=== PATIENT | female | born 1955 | race Caucasian/White ===

== ENCOUNTER 2018-02-03 12:18 | Observation (INO) | payer BC, OTHER ==
[2018-02-03] VITALS (9 sets, daily range): BP systolic 133–164; BP diastolic 69–90; PULSE 96–105; RESP 16–24; TEMP 96.8–99.2; O2SAT 92–98
[~2018-02-03] VITALS: Ht 160 cm; Wt 109.3 kg
[~2018-02-03 12:18] MED LIST: ASPI81CH3 PO; CALC600T34 PO; FERR324T4 PO; FOLI1TAB PO; IBUP800T23 PO; LEVO25TA36 PO; METH750T2 PO; OMEP20CA5 PO; PRED5 PO; TAB-TAB PO; TOFA5TAB PO; VITA100017 PO
--- NOTE | 2018-02-03 14:40 | PD ---
HPI Chief Complaint: Respiratory Symptoms Time Seen by Provider: 14:25 Travel History International Travel<30 days: No Contact w/Intl Traveler<30days: No Traveled to known affect area: No History of Present Illness HPI The patient is a 63-year-old female who presents to the emergency department for shortness of breath and wheezing. The patient states her symptoms started several weeks ago with flulike symptoms. The patient was treated with Tamiflu, however, her symptoms persisted. The patient was then placed on amoxicillin for postnasal drip. The patient then developed increasing shortness of breath and cough, had an outpatient chest x-ray last Wednesday which apparently revealed pneumonia. The patient was placed on Levaquin , however, has progressing symptoms. The patient does have a history of rheumatoid arthritis is currently taking methotrexate, prednisone 5 mg daily, and Xeljanz. The patient does note a mostly dry nonproductive cough, subjective fevers, but no chills or sweats. The patient does not have any inhaler or nebulizer at home. She does have a history of pneumonia and bronchitis, quit smoking in 1989. She denies any known history of congestive heart failure, COPD, pulmonary embolism, or DVT. The patient's primary physician is Dr. Calvin. Symptoms are moderate. PFSH Past Medical History Hx Anticoagulant Therapy: Yes (asa 81mg) Anemia: Yes Arthritis: Yes (RHEUMATOID) Cancer: No Cardiovascular Problems: Yes (hx of htn but not at this time) Diabetes: Yes (type 2) Diminished Hearing: No GERD: Yes Glaucoma: No Hepatitis: No Hiatal Hernia: No Hypertension: Yes Thyroid Disease: Yes ?: Not Menopausal: Yes Past Surgical History Abdominal Surgery: No Section: Yes Ear Surgery: No Endocrine Surgery: No Eye Surgery: No Genitourinary Surgery: No Gynecologic Surgery: Yes (C-SEC) Oral Surgery: No Pacemaker: No Thoracic Surgery: No Other Surgery: Yes Social History Alcohol Use: No Tobacco Use: No Substance Use: No Allergies-Medications (Allergen,Severity, Reaction): Coded Allergies: shellfish derived (Unverified Allergy, Intermediate, Hives, 02/03/18) alendronate sodium (Unverified Allergy, Mild, 02/03/18) HURTS ALL OVER Reported Meds & Prescriptions Reported Meds & Active Scripts Active Reported Levofloxacin 750 Mg Tablet Unknown Dose PO DAILY Omeprazole 40 Mg Cap 40 Mg PO DAILY Prednisone 5 Mg Tab 5 Mg PO DAILY Levothyroxine (Levothyroxine Sodium) 25 Mcg Tab 25 Mcg PO DAILY Folic Acid 0.8 Mg Tab 1 Mcg PO DIRECTED Aspirin EC (Aspirin) 81 Mg Tabdr 81 Mg PO DAILY Januvia (Sitagliptin Phosphate) 100 Mg Tab 100 Mg PO DAILY Gabapentin 300 Mg Cap 600 Mg PO HS Glipizide 5 Mg Tab 5 Mg PO DAILY Take 30 minutes before a meal Sertraline (Sertraline HCl) 50 Mg Tab 50 Mg PO DAILY Xeljanz (Tofacitinib) 5 Mg Tab 5 Mg PO BID Rasuvo (Methotrexate (Antirheumatic)) 20 Mg/0.4 Ml Inj 50 Mg IM WEEKLY Review of Systems Except as stated in HPI: all other systems reviewed are Neg General / Constitutional: Positive: Fever HENT: Positive: Congestion, No: Lightheadedness Cardiovascular: No: Chest Pain or Discomfort Respiratory: Positive: Cough, Shortness of Breath, Wheezing Gastrointestinal: No: Nausea, Vomiting, Abdominal Pain Musculoskeletal: Positive: Weakness, No: Edema Physical Exam Narrative GENERAL: Awake, alert, pleasant 63-year-old female who appears her stated age and is in no acute respiratory distress. SKIN: Focused skin assessment warm/dry. HEAD: Atraumatic. Normocephalic. EYES: Pupils equal and round. No scleral icterus. No injection or drainage. ENT: No nasal bleeding or discharge. Mucous membranes pink and moist. NECK: Trachea midline. No JVD. CARDIOVASCULAR: Regular, tachycardic with a heart rate of 110. RESPIRATORY: Mild tachypnea with a respiratory rate of 24. Diffuse wheezing and some rhonchi noted in the right base. GASTROINTESTINAL: Abdomen soft, non-tender, nondistended. No rebound tenderness. MUSCULOSKELETAL: No obvious deformities. No clubbing. No cyanosis. No edema. Superficial varicosities noted. Negative Homans sign. No tenderness over the calf. NEUROLOGICAL: Awake and alert. No obvious cranial nerve deficits. Motor grossly within normal limits. Normal speech. PSYCHIATRIC: Appropriate mood and affect; insight and judgment normal. Data Data Last Documented VS Vital Signs Date Time Temp Pulse Resp B/P (MAP) Pulse Ox O2 Delivery O2 Flow Rate FiO2 02/03/18 15:38 96 Nasal Cannula 2.00 02/03/18 15:02 96 18 02/03/18 12:22 99.2 164/81 (108) Orders Orders Complete Blood Count With Diff (02/03/18 14:34) Comprehensive Metabolic Panel (02/03/18 14:34) B-Type Natriuretic Peptide (02/03/18 14:34) Magnesium (Mg) (02/03/18 14:34) Influenzae A/B Antigen (02/03/18 14:34) Blood Culture (02/03/18 14:34) Iv Access Insert/Monitor (02/03/18 14:34) Electrocardiogram (02/03/18 14:34) Ecg Monitoring (02/03/18 14:34) Oximetry (02/03/18 14:34) Oxygen Administration (02/03/18 14:34) Chest, Single Ap (02/03/18 14:34) Sodium Chloride 0.9% Flush (Ns Flush) (02/03/18 14:45) Methylprednisolone So Succ Inj (Solumedr (02/03/18 14:45) Albuterol-Ipratropium Neb (Duoneb Neb) (02/03/18 14:45) Lactic Acid (02/03/18 14:34) Sodium Chlorid 0.9% 500 Ml Inj (Ns 500 M (02/03/18 14:45) Admit Order (Ed Use Only) (02/03/18 16:04) Labs Laboratory Tests Test 02/03/18 14:50 White Blood Count 15.4 TH/MM3 Red Blood Count 4.73 MIL/MM3 Hemoglobin 12.9 GM/DL Hematocrit 38.8 % Mean Corpuscular Volume 82.0 FL Mean Corpuscular Hemoglobin 27.2 PG Mean Corpuscular Hemoglobin Concent 33.2 % Red Cell Distribution Width 18.1 % Platelet Count 317 TH/MM3 Mean Platelet Volume 8.5 FL Neutrophils (%) (Auto) 83.0 % Lymphocytes (%) (Auto) 6.5 % Monocytes (%) (Auto) 7.1 % Eosinophils (%) (Auto) 1.3 % Basophils (%) (Auto) 2.1 % Neutrophils # (Auto) 12.8 TH/MM3 Lymphocytes # (Auto) 1.0 TH/MM3 Monocytes # (Auto) 1.1 TH/MM3 Eosinophils # (Auto) 0.2 TH/MM3 Basophils # (Auto) 0.3 TH/MM3 CBC Comment DIFF FINAL Differential Comment Blood Urea Nitrogen 13 MG/DL Creatinine 0.95 MG/DL Random Glucose 150 MG/DL Total Protein 8.4 GM/DL Albumin 3.1 GM/DL Calcium Level 8.8 MG/DL Magnesium Level 1.6 MG/DL Alkaline Phosphatase 109 U/L Aspartate Amino Transf (AST/SGOT) 21 U/L Alanine Aminotransferase (ALT/SGPT) 26 U/L Total Bilirubin 0.6 MG/DL Sodium Level 137 MEQ/L Potassium Level 3.9 MEQ/L Chloride Level 100 MEQ/L Carbon Dioxide Level 30.6 MEQ/L Anion Gap 6 MEQ/L Estimat Glomerular Filtration Rate 59 ML/MIN Lactic Acid Level 2.0 mmol/L B-Type Natriuretic Peptide LESS THAN 2 PG/ML MDM Medical Decision Making Medical Screen Exam Complete: Yes Emergency Medical Condition: Yes Medical Record Reviewed: Yes Interpretation(s) Last Impressions Chest X-Ray 02/03/18 1434 Signed Impressions: Service Date/Time: January 14:37 - CONCLUSION: Focal patchiness within the right upper lung field and left lung base consistent with possible infiltrates. Clinical correlation is recommended. Parish Domínguez MD EKG reveals normal sinus rhythm with a rate 85. Low QRS voltage precordial leads. Q waves in lead II, III, and aVF. Laboratory Tests Test 02/03/18 14:50 White Blood Count 15.4 TH/MM3 Red Blood Count 4.73 MIL/MM3 Hemoglobin 12.9 GM/DL Hematocrit 38.8 % Mean Corpuscular Volume 82.0 FL Mean Corpuscular Hemoglobin 27.2 PG Mean Corpuscular Hemoglobin Concent 33.2 % Red Cell Distribution Width 18.1 % Platelet Count 317 TH/MM3 Mean Platelet Volume 8.5 FL Neutrophils (%) (Auto) 83.0 % Lymphocytes (%) (Auto) 6.5 % Monocytes (%) (Auto) 7.1 % Eosinophils (%) (Auto) 1.3 % Basophils (%) (Auto) 2.1 % Neutrophils # (Auto) 12.8 TH/MM3 Lymphocytes # (Auto) 1.0 TH/MM3 Monocytes # (Auto) 1.1 TH/MM3 Eosinophils # (Auto) 0.2 TH/MM3 Basophils # (Auto) 0.3 TH/MM3 CBC Comment DIFF FINAL Differential Comment Blood Urea Nitrogen 13 MG/DL Creatinine 0.95 MG/DL Random Glucose 150 MG/DL Total Protein 8.4 GM/DL Albumin 3.1 GM/DL Calcium Level 8.8 MG/DL Magnesium Level 1.6 MG/DL Alkaline Phosphatase 109 U/L Aspartate Amino Transf (AST/SGOT) 21 U/L Alanine Aminotransferase (ALT/SGPT) 26 U/L Total Bilirubin 0.6 MG/DL Sodium Level 137 MEQ/L Potassium Level 3.9 MEQ/L Chloride Level 100 MEQ/L Carbon Dioxide Level 30.6 MEQ/L Anion Gap 6 MEQ/L Estimat Glomerular Filtration Rate 59 ML/MIN Lactic Acid Level 2.0 mmol/L B-Type Natriuretic Peptide LESS THAN 2 PG/ML Differential Diagnosis Differential diagnosis includes pneumonia, bronchitis, failed outpatient therapy , pleural effusion, influenza, congestive heart failure, pulmonary edema, pulmonary embolism, cardiomyopathy. Narrative Course IV was established, labs are drawn and sent, and the patient was placed on cardiac telemetry monitoring and continuous pulse oximetry monitoring. EKG was ordered and interpreted. Chest x-ray was obtained. The patient received Solu- Medrol 125 mg intravenously and duo nebs 3. Chest x-ray reveals focal patchiness within the right upper lung field and left lung base consistent with possible infiltrates. White count is not elevated at 15.4, heart rate is elevated, sirs criteria. Lactic acid is 2.0. Pneumonia is bilateral on x-ray. The patient was reevaluated after duo nebs, continues to have wheezing. The patient is immunocompromised with her rheumatoid medications, has decreased T- cell response, continued wheezing after treatment, therefore, will be admitted. The patient received Rocephin and Zithromax. Sepsis Criteria SIRS Criteria (2 or more): Heart rate over 90, WBC > 32286, < 4000 or > 10% bands Physician Communication Physician Communication [facility]. I discussed the patient with Dr. Saldivar who agrees with admission. Diagnosis Primary Impression: Pneumonia Qualified Codes: J18.9 - Pneumonia, unspecified organism Additional Impression: Sepsis Qualified Codes: A41.9 - Sepsis, unspecified organism Admitting Information Admitting Physician Requests: Admit Condition: Stable Bassam Sanches MD Feb 03, 2018 14:40
[2018-02-03] MEDS ORDERED: SODIUM CHLORIDE 0.9% FLUSH 10 ML FLUSH IVF PRN (14:45)
[2018-02-03] MEDS ORDERED: methylPREDNISolone SOD SUCC 125 MG/2 ML VIAL IV PUSH ONE (14:45)
[2018-02-03] MEDS ORDERED: SODIUM CHLORID 0.9% 500 ML INJ 500 ML IV ONE (14:45)
--- NOTE | 2018-02-03 14:49 | RADRPT ---
EXAM DATE/TIME: 02/03/2018 14:37 [facility] COMPARISON: No previous studies available for comparison. INDICATIONS : Short of breath. MEDICAL HISTORY : None. SURGICAL HISTORY : None. ENCOUNTER: Initial ACUITY: 1 week PAIN SCORE: 2/10 LOCATION: Bilateral chest FINDINGS: Focal patchiness is noted within the right upper lung field and left lung base consistent with possib le infiltrates. Clinical correlation is recommended. The heart is normal. The pulmonary vascular veronica castillo is normal. CONCLUSION: Focal patchiness within the right upper lung field and left lung base consistent with possible infilt rates. Clinical correlation is recommended. Parish Domínguez MD on February 03, 2018 at 14:46 Board Certified Radiologist. This report was verified electronically.
[2018-02-03] MEDS ORDERED: METH0.35 IM (14:54)
[2018-02-03] MEDS ORDERED: SERT-132 PO (14:54)
[2018-02-03] MEDS ORDERED: GLIP5TAB8 PO (14:54)
[2018-02-03] MEDS ORDERED: TOFA5TAB PO (14:54)
[2018-02-03] MEDS ORDERED: LEVO750T3 PO (15:06)
[2018-02-03] MEDS ORDERED: LEVO25TA4 PO (15:06)
[2018-02-03] MEDS ORDERED: SITA1TAB2 PO (15:06)
[2018-02-03] MEDS ORDERED: FOLI800T PO (15:06)
[2018-02-03] MEDS ORDERED: PRED5TAB PO (15:06)
[2018-02-03] MEDS ORDERED: OMEP20TA93 PO (15:06)
[2018-02-03] MEDS ORDERED: ASPI81TA23 PO (15:06)
[2018-02-03] MEDS ORDERED: OMEP40CA2 PO (15:06)
[2018-02-03] MEDS ORDERED: GABA300C5 PO (15:06)
[2018-02-03 15:16] LABS: AUTOMATED NEUTROPHIL # 12.8 TH/MM3 (1.8-7.7); BASOPHIL # 0.3 TH/MM3 (0-0.2); BASOPHIL % 2.1 % (0.0-2.0); EOSINOPHIL # 0.2 TH/MM3 (0-0.4); EOSINOPHIL % 1.3 % (0.0-4.0); HEMATOCRIT 38.8 % (35.0-46.0); HEMOGLOBIN 12.9 GM/DL (11.6-15.3); LYMPH % 6.5 % (9.0-44.0); MEAN CORPUSCULAR HEMOGLOBIN 27.2 PG (27.0-34.0); MEAN CORPUSCULAR HGB CONC 33.2 % (32.0-36.0); MEAN PLATELET VOLUME 8.5 FL (7.0-11.0); MONO % 7.1 % (0.0-8.0); MONOCYTE # 1.1 TH/MM3 (0-0.9); PLATELET COUNT 317 TH/MM3 (150-450); RED BLOOD COUNT 4.73 MIL/MM3 (4.00-5.30); RED CELL DISTRIBUTION WIDTH 18.1 % (11.6-17.2); WHITE BLOOD COUNT 15.4 TH/MM3 (4.0-11.0)
[2018-02-03] MEDS: RESP: ALBUTEROL 2.5 MG/IPRATROPIUM 0.5 MG NEB (SCH) INH (15:34)
[2018-02-03 15:36] LABS: CHLORIDE 100 MEQ/L (98-107); SODIUM (NA) 137 MEQ/L (136-145)
[2018-02-03 15:40] LABS: ALBUMIN 3.1 GM/DL (3.4-5.0); BICARBONATE 30.6 MEQ/L (21.0-32.0); BLOOD UREA NITROGEN 13 MG/DL (7-18); CALCIUM 8.8 MG/DL (8.5-10.1); GLUCOSE,RANDOM 150 MG/DL (74-106); MAGNESIUM 1.6 MG/DL (1.5-2.5)
[2018-02-03 15:43] LABS: ALT (GPT) 26 U/L (10-53); AST (GOT) 21 U/L (15-37); CREATININE 0.95 MG/DL (0.50-1.00); GLOMERULAR FILTRATION RATE 59 ML/MIN (>89)
[2018-02-03 15:45] LABS: TOTAL BILIRUBIN ADULT 0.6 MG/DL (0.2-1.0); TOTAL PROTEIN 8.4 GM/DL (6.4-8.2)
[2018-02-03 15:46] LABS: ALKALINE PHOSPHATASE 109 U/L (45-117)
[2018-02-03] MEDS ORDERED: cefTRIAXone INJ 1,000 MG in SODIUM CHLORIDE 0.9% INJ 100 ML IV ONE (16:15)
[2018-02-03] MEDS ORDERED: ONDANSETRON HCL 4 MG/2 ML VIAL IVP PRN (16:15)
[2018-02-03] MEDS ORDERED: AZITHROMYCIN INJ 500 MG in SODIUM CHLOR 0.9% 250 ML INJ 250 ML IV ONE (16:15)
[2018-02-03] MEDS ORDERED: NALOXONE HCL 0.4 MG/ML AMP IV PUSH PRN (16:15)
[2018-02-03] MEDS ORDERED: RESP: ALBUTEROL 2.5 MG/3 ML NEB (PRN) NEB (16:15)
[2018-02-03] MEDS ORDERED: MAGNESIUM HYDROXIDE SUSP 30 ML CUP PO PRN (16:15)
[2018-02-03] MEDS: ENOXAPARIN SODIUM 40 MG/0.4 ML SYRINGE SQ SCH (16:25)
[2018-02-03] MEDS: SODIUM CHLOR 0.9% 1000 ML INJ 1,000 ML IV SCH (16:25)
--- NOTE | 2018-02-03 16:40 | HHI.HP ---
[facility] Service [facility] Primary Care Physician Clinton Calvin M.D. Admission Diagnosis Bilateral pneumonia, immunocompromise, sepsis Diagnoses: (1) Sepsis Diagnosis: Principal (2) Pneumonia Diagnosis: Principal Chief Complaint: Shortness of breath and wheezing Travel History International Travel<30 Days: No Contact w/Intl Traveler <30 Da: No Traveled to Known Affected Are: No History of Present Illness 63 -year-old female with known history of hypertension, rheumatoid arthritis, diabetes, gastroesophageal reflux, history tobacco use who presented to hospital because of difficulty breathing, shortness of breath, wheezing, dyspnea on exertion. Patient states that her symptoms started at the beginning of this month where she started developing symptoms of upper respiratory infection with sinus congestion, sinus headache, cough, congestion. She did go to her primary medical doctor office Dr. Calvin, who had chest x-ray performed last Wednesday and it was found that time the patient had pneumonia. Patient was then prescribed Levaquin on Wednesday. The patient is only taken 3 doses of antibiotics and because she did not improve she did not take any antibiotics today. She came to emergency department for evaluation. Patient was found to have significant wheezing, patient was given nebulizer treatments and the patient states that her respiratory status has improved since nebulizer treatment. Patient still having a lot of chest tightness and wheeze despite the use of nebulizer. Patient indicates that she has had a cough with minimal phlegm production. 2 weeks ago she did have yellow phlegm, however now she has minimal phlegm production. Her symptoms started worsening when the pollen count has been elevated. Patient has never been diagnosed with any restrictive airway disease or obstructive airway disease despite her [id number] history of smoking. The patient has had increased fatigue with weakness. She did have chills couple weeks ago, however she has not had any fever or chills since then. Patient still does experience some sinus headaches. She denies any nausea, vomiting. She states that she has had loose stools but that has been going on for over the last month. It was not precipitated by any sick exposures or antibiotic use. Review of Systems Respiratory: COMPLAINS OF: Cough, Wheezing, Shortness of breath Except as stated in HPI: all other systems reviewed are Neg Past Family Social History Past Medical History Hypertension Rheumatoid arthritis Gastroesophageal reflux Hypothyroidism Diabetes Past Surgical History Reported Medications Reported Meds & Active Scripts Active Reported Levofloxacin 750 Mg Tablet Unknown Dose PO DAILY Omeprazole 40 Mg Cap 40 Mg PO DAILY Prednisone 5 Mg Tab 5 Mg PO DAILY Levothyroxine (Levothyroxine Sodium) 25 Mcg Tab 25 Mcg PO DAILY Folic Acid 0.8 Mg Tab 1 Mcg PO DIRECTED Aspirin EC (Aspirin) 81 Mg Tabdr 81 Mg PO DAILY Januvia (Sitagliptin Phosphate) 100 Mg Tab 100 Mg PO DAILY Gabapentin 300 Mg Cap 600 Mg PO HS Glipizide 5 Mg Tab 5 Mg PO DAILY Take 30 minutes before a meal Sertraline (Sertraline HCl) 50 Mg Tab 50 Mg PO DAILY Xeljanz (Tofacitinib) 5 Mg Tab 5 Mg PO BID Rasuvo (Methotrexate (Antirheumatic)) 20 Mg/0.4 Ml Inj 50 Mg IM WEEKLY Allergies: Coded Allergies: shellfish derived (Unverified Allergy, Intermediate, Hives, 02/03/18) alendronate sodium (Unverified Allergy, Mild, 02/03/18) HURTS ALL OVER Family History Reviewed is significant for mother at age 78 from ovarian cancer. Father at age 82 with history of hypertension and stroke. Social History Patient quit smoking in 1990 prior to that she smoked for 15 years at 1-1/2 pack a cigarettes a day. Denies any alcohol or illicit drug Physical Exam Vital Signs Vital Signs Date Time Temp Pulse Resp B/P (MAP) Pulse Ox O2 Delivery O2 Flow Rate FiO2 02/03/18 16:20 98.4 102 16 154/69 (97) 96 Nasal Cannula 2.00 02/03/18 15:38 96 Nasal Cannula 2.00 02/03/18 15:02 96 18 98 Nasal Cannula 2.00 02/03/18 14:37 96 Room Air 02/03/18 14:37 96 Room Air 02/03/18 14:34 102 96 Room Air 02/03/18 12:22 99.2 96 16 164/81 (108) 92 Physical Exam GENERAL: Well-developed, well-nourished, in no acute distress. alert and orientated HEENT: Head is normocephalic without any lesions or masses noted. Facial features are symmetric. Eyes: Pupils equal round reactive to light. Extraocular muscles are intact. Conjunctivae were clear. Oropharyngeal: Pharynx without any erythema edema. Tongue is midline without deviation. Buccal mucosa is moist without any masses or lesions NECK: Supple without any masses. Trachea midline no deviation. No JVD, no bruits are appreciated CARDIAC: Regular rhythm, regular rate. S1/S2 are heard. No murmurs gallops or rubs. LUNGS: Expiratory wheeze noted, no rhonchi or rales. No use of accessory muscles on inspiration or expiration. ABDOMEN: Soft, nontender. Nondistended. Bowel sounds heard in all 4 quadrants. No organomegaly or masses. Negative rebound, negative guarding EXTREMITIES: No edema, pulses are equal bilaterally. No cyanosis or clubbing NEUROLOGY: Mood and affect appear appropriate. Cranial nerves II through XII grossly intact. Muscle strength 5/5 in upper and lower extremities bilaterally. Deep tendon reflexes are 2+ in upper and lower extremities bilaterally. Laboratory Laboratory Tests Test 02/03/18 14:50 White Blood Count 15.4 Red Blood Count 4.73 Hemoglobin 12.9 Hematocrit 38.8 Mean Corpuscular Volume 82.0 Mean Corpuscular Hemoglobin 27.2 Mean Corpuscular Hemoglobin Concent 33.2 Red Cell Distribution Width 18.1 Platelet Count 317 Mean Platelet Volume 8.5 Neutrophils (%) (Auto) 83.0 Lymphocytes (%) (Auto) 6.5 Monocytes (%) (Auto) 7.1 Eosinophils (%) (Auto) 1.3 Basophils (%) (Auto) 2.1 Neutrophils # (Auto) 12.8 Lymphocytes # (Auto) 1.0 Monocytes # (Auto) 1.1 Eosinophils # (Auto) 0.2 Basophils # (Auto) 0.3 CBC Comment DIFF FINAL Differential Comment Blood Urea Nitrogen 13 Creatinine 0.95 Random Glucose 150 Total Protein 8.4 Albumin 3.1 Calcium Level 8.8 Magnesium Level 1.6 Alkaline Phosphatase 109 Aspartate Amino Transf (AST/SGOT) 21 Alanine Aminotransferase (ALT/SGPT) 26 Total Bilirubin 0.6 Sodium Level 137 Potassium Level 3.9 Chloride Level 100 Carbon Dioxide Level 30.6 Anion Gap 6 Estimat Glomerular Filtration Rate 59 Lactic Acid Level 2.0 B-Type Natriuretic Peptide LESS THAN 2 Date/Time Source Procedure Growth Status 02/03/18 14:55 Blood Peripheral Aerobic Blood Culture Pending Received 02/03/18 14:55 Blood Peripheral Anaerobic Blood Culture Pending Received 02/03/18 14:50 Nasal Aspirate Influenza Types A,B Antigen (MIGUEL) - Final NEGATIVE FOR FLU A AND B ANTIGEN.... Complete Result Diagram: 02/03/18 1450 02/03/18 1450 Imaging Last Impressions Chest X-Ray 02/03/18 1434 Signed Impressions: Service Date/Time: January 14:37 - CONCLUSION: Focal patchiness within the right upper lung field and left lung base consistent with possible infiltrates. Clinical correlation is recommended. Parish Domínguez MD Septic Shock Reassessment Septic shock perfusion: reassessment completed Caprini VTE Risk Assessment Caprini VTE Risk Assessment: Mod/High Risk (score >= 2) Caprini Risk Assessment Model Point Value = 1 Point Value = 2 Point Value = 3 Point Value = 5 Age 41-60 Minor surgery BMI > 25 kg/m2 Swollen legs Varicose veins or History of unexplained or recurrent spontaneous Oral contraceptives or hormone replacement Sepsis (< 1 month) Serious lung disease, including pneumonia (< 1 month) Abnormal pulmonary function Acute myocardial infarction Congestive heart failure (< 1 month) History of inflammatory bowel disease Medical patient at bed rest Age 61-74 Arthroscopic surgery Major open surgery (> 45 min) Laparoscopic surgery (> 45 min) Malignancy Confined to bed (> 72 hours) Immobilizing plaster cast Central venous access Age >= 75 History of VTE Family history of VTE Factor V Leiden Prothrombin [id number] Lupus anticoagulant Anticardiolipin antibodies Elevated serum homocysteine Heparin-induced thrombocytopenia Other congenital or acquired thrombophilia Stroke (< 1 month) Elective arthroplasty Hip, pelvis, or leg fracture Acute spinal cord injury (< 1 month) Prophylaxis Regimen Total Risk Factor Score Risk Level Prophylaxis Regimen 0-1 Low Early ambulation 2 Moderate Order ONE of the following: *Sequential Compression Device (SCD) *Heparin 5000 units SQ BID 3-4 Higher Order ONE of the following medications: *Heparin 5000 units SQ TID *Enoxaparin/Lovenox 40 mg SQ daily (WT < 150 kg, CrCl > 30 mL/min) *Enoxaparin/Lovenox 30 mg SQ daily (WT < 150 kg, CrCl > 10-29 mL/min) *Enoxaparin/Lovenox 30 mg SQ BID (WT < 150 kg, CrCl > 30 mL/min) AND/OR *Sequential Compression Device (SCD) 5 or more Highest Order ONE of the following medications: *Heparin 5000 units SQ TID (Preferred with Epidurals) *Enoxaparin/Lovenox 40 mg SQ daily (WT < 150 kg, CrCl > 30 mL/min) *Enoxaparin/Lovenox 30 mg SQ daily (WT < 150 kg, CrCl > 10-29 mL/min) *Enoxaparin/Lovenox 30 mg SQ BID (WT < 150 kg, CrCl > 30 mL/min) AND *Sequential Compression Device (SCD) Assessment and Plan Assessment and Plan Sepsis Patient meets criteria on admission with leukocytosis, tachycardia, x-ray with right upper lung and left lung base infiltrates Patient started on IV antibiotics with Rocephin and Zithromax Influenza testing was negative Blood cultures are pending Obtain urinalysis Continue IV fluids Bilateral infiltrates on x-ray could be bacterial versus viral secondary to recent influenza infection Patient failed outpatient management with Levaquin Patient has been started on empirical antibiotics for community-acquired pneumonia Obtain sputum culture Duo nebs every 6 hours while awake and every 2 hours as needed Mucinex 600 mg twice daily Possible underlying COPD in a patient with known history of [id number] history of smoking O2 supplementation maintain O2 saturation greater than 92% Continue prednisone Duo nebs as above Patient would likely benefit from outpatient pulmonary function test when she is not in any acute phase infection Diabetes Accu-Cheks with sliding scale insulin Diabetic diet DVT prevention Subcutaneous Lovenox Problem Qualifiers (1) Sepsis: Qualified Codes: A41.9 - Sepsis, unspecified organism (2) Pneumonia: Qualified Codes: J18.9 - Pneumonia, unspecified organism Deni Lopez Feb 03, 2018 16:40
[2018-02-03] MEDS ORDERED: GLUCAGON 1 MG/ML VIAL OTHER PRN (16:45)
[2018-02-03] MEDS ORDERED: RESP: ALBUTEROL 2.5 MG/IPRATROPIUM 0.5 MG NEB (PRN) NEB (16:45)
[2018-02-03] MEDS ORDERED: DEXTROSE 50% IN WATER 50 ML VIAL(D50) IV PUSH PRN (16:45)
[2018-02-03] MEDS ORDERED: LEVOFLOXACIN 750 MG PREMIX INJ 150 ML IV SCH (17:00)
[2018-02-03] MEDS: LACTOBACILLUS ACIDOPHILUS TAB PO SCH (17:27)
[2018-02-03] MEDS: INSULIN ASPART SUPPLEMENTAL SCALE SQ SCH ×2 (17:31→20:57)
[2018-02-03 19:37] LABS: BILIRUBIN, URINE NEG (NEG); BLOOD, URINE TRACE (NEG); GLUCOSE,URINE 100 mg/dL (NEG); KETONE, URINE TRACE mg/dL (NEG); NITRITE,URINE NEG (NEG); PH, URINE 5.5 (5.0-8.5); URINE COLOR YELLOW (YELLW/STRAW); URINE LEUKOCYTE ESTERASE NEG (NEG)
[2018-02-03 19:44] LABS: MUCUS URINE MOD /lpf (OCC)
[2018-02-03 19:45] LABS: CALCIUM OXALATE CRYSTALS,URINE OCC /hpf
[2018-02-03 19:46] LABS: BACTERIA, URINE RARE /hpf; SQUAMOUS EPITHELIAL CELL URINE > 8 /hpf (0-5)
[2018-02-03] MEDS: RESP: ALBUTEROL 2.5 MG/IPRATROPIUM 0.5 MG NEB (SCH) NEB (20:22)
[2018-02-03] MEDS: guaiFENesin E.R. 600 MG TAB PO SCH (20:56)
[2018-02-03] MEDS: predniSONE 20 MG TAB PO SCH (20:56)
[2018-02-03] MEDS: guaiFENesin/CODEINE SYRUP 200 MG/20 MG/10 ML CUP PO PRN (20:56)
[2018-02-03] MEDS: SODIUM CHLORIDE 0.9% FLUSH 10 ML FLUSH IV FLUSH SCH (20:57)
[2018-02-04] VITALS (8 sets, daily range): BP systolic 126–153; BP diastolic 72–89; PULSE 74–99; RESP 19–22; TEMP 96–97.9; O2SAT 90–98
[2018-02-04] MEDS: guaiFENesin/CODEINE SYRUP 200 MG/20 MG/10 ML CUP PO PRN ×2 (03:52→12:49)
[2018-02-04] MEDS ORDERED: ACETAMINOPHEN 325 MG TAB PO ONE (04:15)
[2018-02-04 06:47] LABS: AUTOMATED NEUTROPHIL # 16.2 TH/MM3 (1.8-7.7); BASOPHIL % 0.2 % (0.0-2.0); HEMATOCRIT 33.9 % (35.0-46.0); HEMOGLOBIN 11.1 GM/DL (11.6-15.3); LYMPH % 3.9 % (9.0-44.0); LYMPHOCYTE # 0.7 TH/MM3 (1.0-4.8); MEAN CELL VOLUME 82.3 FL (80.0-100.0); MEAN CORPUSCULAR HEMOGLOBIN 26.8 PG (27.0-34.0); MEAN CORPUSCULAR HGB CONC 32.6 % (32.0-36.0); MEAN PLATELET VOLUME 8.2 FL (7.0-11.0); MONO % 4.1 % (0.0-8.0); MONOCYTE # 0.7 TH/MM3 (0-0.9); NEUT % 91.8 % (16.0-70.0); PLATELET COUNT 256 TH/MM3 (150-450); RED BLOOD COUNT 4.12 MIL/MM3 (4.00-5.30); RED CELL DISTRIBUTION WIDTH 17.2 % (11.6-17.2); WHITE BLOOD COUNT 17.6 TH/MM3 (4.0-11.0)
[2018-02-04 06:55] LABS: CHLORIDE 102 MEQ/L (98-107); SODIUM (NA) 137 MEQ/L (136-145)
[2018-02-04 06:59] LABS: CALCIUM 8.5 MG/DL (8.5-10.1)
[2018-02-04 07:00] LABS: ALBUMIN 2.7 GM/DL (3.4-5.0); BICARBONATE 28.7 MEQ/L (21.0-32.0); BLOOD UREA NITROGEN 13 MG/DL (7-18); GLUCOSE,RANDOM 215 MG/DL (74-106)
[2018-02-04 07:03] LABS: ALT (GPT) 22 U/L (10-53); AST (GOT) 15 U/L (15-37); CREATININE 0.68 MG/DL (0.50-1.00); GLOMERULAR FILTRATION RATE 87 ML/MIN (>89)
[2018-02-04 07:05] LABS: TOTAL BILIRUBIN ADULT 0.5 MG/DL (0.2-1.0); TOTAL PROTEIN 7.5 GM/DL (6.4-8.2)
[2018-02-04] MEDS: SODIUM CHLOR 0.9% 1000 ML INJ 1,000 ML IV SCH ×2 (07:05→08:17)
[2018-02-04 07:06] LABS: ALKALINE PHOSPHATASE 90 U/L (45-117)
[2018-02-04] MEDS: RESP: ALBUTEROL 2.5 MG/IPRATROPIUM 0.5 MG NEB (SCH) NEB ×3 (07:29→19:42)
[2018-02-04] MEDS: INSULIN ASPART SUPPLEMENTAL SCALE SQ SCH ×4 (07:48→21:15)
[2018-02-04] MEDS: guaiFENesin E.R. 600 MG TAB PO SCH ×2 (08:17→21:15)
[2018-02-04] MEDS: LACTOBACILLUS ACIDOPHILUS TAB PO SCH ×3 (08:18→17:45)
[2018-02-04] MEDS: predniSONE 20 MG TAB PO SCH (08:18)
[2018-02-04] MEDS: SODIUM CHLORIDE 0.9% FLUSH 10 ML FLUSH IV FLUSH SCH ×2 (08:18→21:15)
--- NOTE | 2018-02-04 09:13 | HHI.PR ---
Subjective Remarks Patient seen and examined today for follow-up on bilateral pneumonia. Patient states that she does feel a little better today as compared to yesterday. I spent extensive time counseling patient and daughter her condition, treatment plan. Patient vital signs are stable, remains afebrile. Objective Vitals Vital Signs Date Time Temp Pulse Resp B/P (MAP) Pulse Ox O2 Delivery O2 Flow Rate FiO2 02/04/18 08:22 97.9 90 19 153/89 (110) 95 02/04/18 07:30 90 Nasal Cannula 2.00 02/04/18 07:29 93 02/04/18 07:28 Nasal Cannula 2.00 02/04/18 04:00 97.4 93 22 126/74 (91) 92 02/04/18 00:00 97.1 99 22 130/72 (91) 92 02/03/18 20:22 92 Nasal Cannula 2.00 02/03/18 20:00 96.8 105 22 139/80 (99) 92 02/03/18 20:00 102 02/03/18 18:01 102 02/03/18 18:01 96 Nasal Cannula 2.00 02/03/18 17:15 97.6 102 24 133/90 (104) 92 02/03/18 17:12 02/03/18 16:20 98.4 102 16 154/69 (97) 96 Nasal Cannula 2.00 02/03/18 15:38 96 Nasal Cannula 2.00 02/03/18 15:02 96 18 98 Nasal Cannula 2.00 02/03/18 14:37 96 Room Air 02/03/18 14:37 96 Room Air 02/03/18 14:34 102 96 Room Air 02/03/18 12:22 99.2 96 16 164/81 (108) 92 I/O 02/03/18 02/03/18 02/03/18 02/04/18 02/04/18 02/04/18 07:00 15:00 23:00 07:00 15:00 23:00 Intake Total 850 ml 420 ml 150 ml Balance 850 ml 420 ml 150 ml Intake Oral 420 ml 50 ml IV Total 850 ml 100 ml # Voids 3 # Bowel Movements 0 Result Diagram: 02/04/1820 02/04/1820 Objective Remarks GENERAL: Well-developed, well-nourished, in no acute distress. alert and orientated HEENT: Head is normocephalic without any lesions or masses noted. Facial features are symmetric. Eyes: Extraocular muscles are intact. Conjunctivae were clear. NECK: Supple without any masses. Trachea midline no deviation. No JVD, CARDIAC: Regular rhythm, regular rate. S1/S2 are heard. No murmurs gallops or rubs. LUNGS: Expiratory wheeze noted, no rhonchi or rales. No use of accessory muscles on inspiration or expiration. ABDOMEN: Soft, nontender. Nondistended. Bowel sounds heard in all 4 quadrants. No organomegaly or masses. Negative rebound, negative guarding EXTREMITIES: No edema, pulses are equal bilaterally. No cyanosis or clubbing NEUROLOGY: Mood and affect appear appropriate. Cranial nerves II through XII grossly intact. Moving all extremities, speech clear Urinary Catheter: No Vascular Central Line Catheter: No A/P Assessment and Plan Sepsis Patient meets criteria on admission with leukocytosis, tachycardia, x-ray with right upper lung and left lung base infiltrates Patient started on IV antibiotics with Rocephin and Zithromax Influenza testing was negative Blood cultures are pending Urinalysis does not indicate any infection Bilateral infiltrates on x-ray could be bacterial versus viral secondary to recent influenza infection Patient failed outpatient management with Levaquin Patient has been started on empirical antibiotics for community-acquired pneumonia Sputum cultures pending Duo nebs every 6 hours while awake and every 2 hours as needed Mucinex 600 mg twice daily Robitussin for cough suppression Possible underlying COPD in a patient with known history of [id number] history of smoking O2 supplementation maintain O2 saturation greater than 92% Discontinue prednisone, start Solu-Medrol 40 mg every 6 hours. Duo nebs as above Start Acapella Patient would likely benefit from outpatient pulmonary function test when she is not in any acute phase infection Diabetes Accu-Cheks with sliding scale insulin Diabetic diet DVT prevention Subcutaneous Loveabhinavx Deni Lopez Feb 04, 2018 09:13
[2018-02-04] MEDS: methylPREDNISolone SOD SUCC 40 MG/1 ML VIAL IV PUSH SCH ×2 (11:54→17:46)
--- NOTE | 2018-02-04 14:31 | EKG ---
Date Performed: 02/03/2018 Time Performed: 15:18:07 PTAGE: 63 years EKG: Sinus rhythm LOW QRS VOLTAGE IN PRECORDIAL LEADS PROBABLE INFERIOR MYOCARDIAL INFARCTION ABNORMAL ECG PREVIOUS TRACING : 03/22/2009 12.08 Inferior Q-waves are more prominent. Clinical correlation i s recommended. DOCTOR: Kristopher Coleman Interpretating Date/Time 02/04/2018 14:30:48
[2018-02-04] MEDS: AZITHROMYCIN INJ 500 MG in SODIUM CHLOR 0.9% 250 ML INJ 250 ML IV SCH (14:42)
[2018-02-04] MEDS: ALUMINUM/MAGNESIUM/SIMETH 30 ML CUP PO PRN (14:51)
[2018-02-04] MEDS: cefTRIAXone INJ 1,000 MG in SODIUM CHLORIDE 0.9% INJ 100 ML IV SCH (16:13)
[2018-02-04] MEDS: ENOXAPARIN SODIUM 40 MG/0.4 ML SYRINGE SQ SCH (17:45)
[2018-02-04] MEDS: ACETAMINOPHEN 325 MG TAB PO PRN (21:17)
[2018-02-05] VITALS (8 sets, daily range): BP systolic 133–158; BP diastolic 68–88; PULSE 18–95; RESP 18–20; TEMP 96.2–97.7; O2SAT 93–96
[2018-02-05] MEDS: methylPREDNISolone SOD SUCC 40 MG/1 ML VIAL IV PUSH SCH ×5 (01:03→23:24)
[2018-02-05] MEDS: SODIUM CHLORIDE 0.9% FLUSH 10 ML FLUSH IV FLUSH PRN ×2 (01:04→05:56)
[2018-02-05] MEDS: ALUMINUM/MAGNESIUM/SIMETH 30 ML CUP PO PRN ×2 (01:18→09:26)
[2018-02-05] MEDS: RESP: ALBUTEROL 2.5 MG/IPRATROPIUM 0.5 MG NEB (SCH) NEB ×3 (07:34→21:52)
[2018-02-05 07:36] LABS: AUTOMATED NEUTROPHIL # 20.1 TH/MM3 (1.8-7.7); BASOPHIL % 0.1 % (0.0-2.0); EOSINOPHIL % 0.1 % (0.0-4.0); HEMATOCRIT 34.1 % (35.0-46.0); HEMOGLOBIN 11.1 GM/DL (11.6-15.3); LYMPHOCYTE # 0.6 TH/MM3 (1.0-4.8); MEAN CORPUSCULAR HEMOGLOBIN 26.7 PG (27.0-34.0); MEAN CORPUSCULAR HGB CONC 32.6 % (32.0-36.0); MEAN PLATELET VOLUME 8.4 FL (7.0-11.0); MONO % 3.4 % (0.0-8.0); MONOCYTE # 0.7 TH/MM3 (0-0.9); NEUT % 93.4 % (16.0-70.0); PLATELET COUNT 274 TH/MM3 (150-450); RED BLOOD COUNT 4.16 MIL/MM3 (4.00-5.30); RED CELL DISTRIBUTION WIDTH 17.3 % (11.6-17.2); WHITE BLOOD COUNT 21.4 TH/MM3 (4.0-11.0)
[2018-02-05 07:57] LABS: CALCIUM 8.6 MG/DL (8.5-10.1)
[2018-02-05 07:58] LABS: BICARBONATE 30.1 MEQ/L (21.0-32.0); MAGNESIUM 2.1 MG/DL (1.5-2.5)
[2018-02-05 08:01] LABS: CREATININE 0.69 MG/DL (0.50-1.00)
[2018-02-05] MEDS: INSULIN ASPART SUPPLEMENTAL SCALE SQ SCH ×4 (08:23→21:00)
[2018-02-05] MEDS: SODIUM CHLORIDE 0.9% FLUSH 10 ML FLUSH IV FLUSH SCH ×2 (08:23→22:31)
[2018-02-05] MEDS: LACTOBACILLUS ACIDOPHILUS TAB PO SCH ×3 (08:23→17:23)
[2018-02-05] MEDS: guaiFENesin E.R. 600 MG TAB PO SCH ×2 (08:23→22:31)
[2018-02-05] MEDS: ACETAMINOPHEN 325 MG TAB PO PRN ×2 (09:25→14:52)
--- NOTE | 2018-02-05 10:07 | HHI.PR ---
Subjective Remarks Patient seen and examined today for follow-up on bilateral pneumonia, possible underlying COPD, hypoxia. Patient states that she does feel a little better today. Still with shortness of breath, dyspnea. States that she has been experiencing abdominal discomfort with the use of steroids. She usually takes Prilosec at home. Patient remains afebrile Objective Vitals Vital Signs Date Time Temp Pulse Resp B/P (MAP) Pulse Ox O2 Delivery O2 Flow Rate FiO2 02/05/18 08:47 97.7 95 18 158/71 (100) 95 02/05/18 08:28 18 02/05/18 08:00 Nasal Cannula 2.00 02/05/18 07:36 95 Nasal Cannula 2.00 02/05/18 00:00 96.2 89 20 133/68 (89) 94 02/04/18 22:17 20 02/04/18 20:00 95 Nasal Cannula 2.00 28 02/04/18 20:00 96.0 92 20 136/76 (96) 95 02/04/18 19:42 98 Nasal Cannula 2.00 02/04/18 17:05 97.5 74 20 140/83 (102) 94 02/04/18 12:00 I/O 02/04/18 02/04/18 02/04/18 02/05/18 02/05/18 02/05/18 07:00 15:00 23:00 07:00 15:00 23:00 Intake Total 420 ml 550 ml 480 ml 240 ml Balance 420 ml 550 ml 480 ml 240 ml Intake Oral 420 ml 50 ml 480 ml 240 ml IV Total 500 ml # Voids 3 4 # Bowel Movements 0 Result Diagram: 02/05/18 0715 02/05/18 0715 Objective Remarks GENERAL: Well-developed, well-nourished, in no acute distress. alert and orientated HEENT: Head is normocephalic without any lesions or masses noted. Facial features are symmetric. Eyes: Extraocular muscles are intact. Conjunctivae were clear. NECK: Supple without any masses. Trachea midline no deviation. No JVD, CARDIAC: Regular rhythm, regular rate. S1/S2 are heard. No murmurs gallops or rubs. LUNGS: Very minimal expiratory wheeze. Improved air movement. No rhonchi or rales. No use of accessory muscles on inspiration or expiration. ABDOMEN: Soft, nontender. Nondistended. Bowel sounds heard in all 4 quadrants. No organomegaly or masses. Negative rebound, negative guarding EXTREMITIES: No edema, pulses are equal bilaterally. No cyanosis or clubbing NEUROLOGY: Mood and affect appear appropriate. Cranial nerves II through XII grossly intact. Moving all extremities, speech clear Urinary Catheter: No Vascular Central Line Catheter: No A/P Assessment and Plan Sepsis Patient meets criteria on admission with leukocytosis, tachycardia, x-ray with right upper lung and left lung base infiltrates Patient started on IV antibiotics with Rocephin and Zithromax Influenza testing was negative Blood cultures are pending Urinalysis does not indicate any infection Bilateral infiltrates on x-ray could be bacterial versus viral secondary to recent influenza infection Patient failed outpatient management with Levaquin Patient has been started on empirical antibiotics for community-acquired pneumonia Sputum cultures unremarkable thus far with immature growth Duo nebs every 6 hours while awake and every 2 hours as needed Mucinex 600 mg twice daily Robitussin for cough suppression Possible underlying COPD in a patient with known history of [id number] history of smoking O2 supplementation maintain O2 saturation greater than 92% Continue Solu-Medrol 40 mg every 6 hours. Duo nebs as above Continue Acapella Start Protonix for GI protection Patient would likely benefit from outpatient pulmonary function test when she is not in any acute phase infection Diabetes Accu-Cheks with sliding scale insulin Diabetic diet DVT prevention Subcutaneous Lovenox Discharge Planning Discharge planning hopefully tomorrow if patient continues to respond to treatment. Deni Lopez Feb 05, 2018 10:07
[2018-02-05] MEDS: PANTOPRAZOLE SOD 40 MG DELAYED RELEASE TAB PO SCH (11:17)
[2018-02-05] MEDS: cefTRIAXone INJ 1,000 MG in SODIUM CHLORIDE 0.9% INJ 100 ML IV SCH (15:37)
[2018-02-05] MEDS: AZITHROMYCIN INJ 500 MG in SODIUM CHLOR 0.9% 250 ML INJ 250 ML IV SCH (16:19)
[2018-02-05] MEDS: ENOXAPARIN SODIUM 40 MG/0.4 ML SYRINGE SQ SCH (16:21)
[2018-02-06] VITALS: BP 126/72; PULSE 80; RESP 20; TEMP 97.8; O2SAT 94
[2018-02-06] MEDS: methylPREDNISolone SOD SUCC 40 MG/1 ML VIAL IV PUSH SCH (05:30)
[2018-02-06] MEDS: RESP: ALBUTEROL 2.5 MG/IPRATROPIUM 0.5 MG NEB (SCH) NEB (07:27)
[2018-02-06 07:35] VITALS: O2SAT 94
[2018-02-06] MEDS: guaiFENesin E.R. 600 MG TAB PO SCH (08:23)
[2018-02-06] MEDS: LACTOBACILLUS ACIDOPHILUS TAB PO SCH (08:23)
[2018-02-06] MEDS: PANTOPRAZOLE SOD 40 MG DELAYED RELEASE TAB PO SCH (08:23)
[2018-02-06] MEDS: SODIUM CHLORIDE 0.9% FLUSH 10 ML FLUSH IV FLUSH SCH (08:24)
[2018-02-06] MEDS: INSULIN ASPART SUPPLEMENTAL SCALE SQ SCH (08:24)
[2018-02-06 09:00] VITALS: BP 135/84; PULSE 88; RESP 20; TEMP 97.1; O2SAT 92
[2018-02-06] MEDS ORDERED: guaiFENesin ER PO (09:09)
[2018-02-06] MEDS ORDERED: Albuterol-Ipratropium Neb NEB (09:09)
[2018-02-06] MEDS ORDERED: ZITH250T PO (09:09)
[2018-02-06] MEDS ORDERED: IPRAAER INH (09:09)
[2018-02-06] MEDS ORDERED: MEDR4PAK PO (09:09)
[2018-02-06] MEDS ORDERED: CEFU1TAB18 PO (09:09)
[2018-02-06] MEDS ORDERED: NEBULIZER1 MI1 (09:11)
--- NOTE | 2018-02-06 09:12 | HHI.DCPOC ---
Discharge Care Plan Diagnosis: (1) Sepsis (2) Pneumonia Goals to Promote Your Health * To prevent worsening of your condition and complications * To maintain your health at the optimal level Directions to Meet Your Goals Take your medications as prescribed Follow your dietary instruction Follow activity as directed Keep your appointments as scheduled Take your immunizations and boosters as scheduled If your symptoms worsen call your PCP, if no PCP go to Urgent Care Center or Emergency Room Smoking is Dangerous to Your Health. Avoid second hand smoke Call the 24-hour hour crisis hotline for domestic abuse at Deni Lopez Feb 06, 2018 09:12
--- NOTE | 2018-02-06 09:17 | HHI.DS ---
Discharge Summary Admission Date Feb 03, 2018 at 16:05 Discharge Date: Feb 06, 2018 Admitting Diagnosis Bilateral pneumonia, immunocompromise, sepsis (1) Sepsis ICD Code: A41.9 - Sepsis, unspecified organism Diagnosis: Principal Status: Acute (2) Pneumonia ICD Code: J18.9 - Pneumonia, unspecified organism Diagnosis: Principal Status: Acute Procedures None Brief History - From Admission 63 -year-old female with known history of hypertension, rheumatoid arthritis, diabetes, gastroesophageal reflux, history tobacco use who presented to hospital because of difficulty breathing, shortness of breath, wheezing, dyspnea on exertion. Patient states that her symptoms started at the beginning of this month where she started developing symptoms of upper respiratory infection with sinus congestion, sinus headache, cough, congestion. She did go to her primary medical doctor office Dr. Calvin, who had chest x-ray performed last Wednesday and it was found that time the patient had pneumonia. Patient was then prescribed Levaquin on Wednesday. The patient is only taken 3 doses of antibiotics and because she did not improve she did not take any antibiotics today. She came to emergency department for evaluation. Patient was found to have significant wheezing, patient was given nebulizer treatments and the patient states that her respiratory status has improved since nebulizer treatment. Patient still having a lot of chest tightness and wheeze despite the use of nebulizer. Patient indicates that she has had a cough with minimal phlegm production. 2 weeks ago she did have yellow phlegm, however now she has minimal phlegm production. Her symptoms started worsening when the pollen count has been elevated. Patient has never been diagnosed with any restrictive airway disease or obstructive airway disease despite her [id number] history of smoking. The patient has had increased fatigue with weakness. She did have chills couple weeks ago, however she has not had any fever or chills since then. Patient still does experience some sinus headaches. She denies any nausea, vomiting. She states that she has had loose stools but that has been going on for over the last month. It was not precipitated by any sick exposures or antibiotic use. CBC/BMP: 02/05/18 0715 02/05/18 0715 Significant Findings Laboratory Tests Test 3/15/18 14:50 02/03/18 19:25 02/04/18 06:20 02/05/18 07:15 White Blood Count 15.4 TH/MM3 (4.0-11.0) 17.6 TH/MM3 (4.0-11.0) 21.4 TH/MM3 (4.0-11.0) Red Cell Distribution Width 18.1 % (11.6-17.2) 17.3 % (11.6-17.2) Neutrophils (%) (Auto) 83.0 % (16.0-70.0) 91.8 % (16.0-70.0) 93.4 % (16.0-70.0) Lymphocytes (%) (Auto) 6.5 % (9.0-44.0) 3.9 % (9.0-44.0) 3.0 % (9.0-44.0) Basophils (%) (Auto) 2.1 % (0.0-2.0) Neutrophils # (Auto) 12.8 TH/MM3 (1.8-7.7) 16.2 TH/MM3 (1.8-7.7) 20.1 TH/MM3 (1.8-7.7) Monocytes # (Auto) 1.1 TH/MM3 (0-0.9) Basophils # (Auto) 0.3 TH/MM3 (0-0.2) Random Glucose 150 MG/DL (74-106) 215 MG/DL (74-106) 217 MG/DL (74-106) Total Protein 8.4 GM/DL (6.4-8.2) Albumin 3.1 GM/DL (3.4-5.0) 2.7 GM/DL (3.4-5.0) Estimat Glomerular Filtration Rate 59 ML/MIN (>89) 87 ML/MIN (>89) 86 ML/MIN (>89) Urine Glucose (UA) 100 mg/dL (NEG) Urine Ketones TRACE mg/dL (NEG) Urine RBC 4-9 /hpf (0-3) Urine Squamous Epithelial Cells > 8 /hpf (0-5) Urine Calcium Oxalate Crystals OCC /hpf (NONE) Urine Bacteria RARE /hpf (NONE) Urine Mucus MOD /lpf (OCC) Urine Yeast (Budding) OCC (NONE) Hemoglobin 11.1 GM/DL (11.6-15.3) 11.1 GM/DL (11.6-15.3) Hematocrit 33.9 % (35.0-46.0) 34.1 % (35.0-46.0) Mean Corpuscular Hemoglobin 26.8 PG (27.0-34.0) 26.7 PG (27.0-34.0) Lymphocytes # (Auto) 0.7 TH/MM3 (1.0-4.8) 0.6 TH/MM3 (1.0-4.8) Blood Urea Nitrogen 19 MG/DL (7-18) Imaging Last Impressions Chest X-Ray 02/03/18 1434 Signed Impressions: Service Date/Time: January 14:37 - CONCLUSION: Focal patchiness within the right upper lung field and left lung base consistent with possible infiltrates. Clinical correlation is recommended. Parish Domínguez MD PE at Discharge GENERAL: Well-developed, well-nourished, in no acute distress. alert and orientated HEENT: Head is normocephalic without any lesions or masses noted. Facial features are symmetric. Eyes: Extraocular muscles are intact. Conjunctivae were clear. NECK: Supple without any masses. Trachea midline no deviation. No JVD, CARDIAC: Regular rhythm, regular rate. S1/S2 are heard. No murmurs gallops or rubs. LUNGS: Very minimal expiratory wheeze. Improved air movement. No rhonchi or rales. No use of accessory muscles on inspiration or expiration. ABDOMEN: Soft, nontender. Nondistended. Bowel sounds heard in all 4 quadrants. No organomegaly or masses. Negative rebound, negative guarding EXTREMITIES: No edema, pulses are equal bilaterally. No cyanosis or clubbing NEUROLOGY: Mood and affect appear appropriate. Cranial nerves II through XII grossly intact. Moving all extremities, speech clear Hospital Course 63-year-old female with known history of hypertension, rheumatoid arthritis, diabetes, gastroesophageal reflux, history tobacco use who presented to hospital because of difficulty breathing, shortness of breath, wheezing, dyspnea on exertion. Patient had workup done in emergency department and found to have sepsis criteria with leukocytosis, pneumonia, tachycardia. Patient was being treated outpatient setting with Levaquin, however she did not improve so she came to the hospital for evaluation. Because of the patient's underlying immunocompromised condition, x-ray with bilateral pneumonia, significant constitutional findings patient was admitted to the hospital with IV antibiotics include Rocephin and Zithromax. Patient was started on oxygen for O2 supplementation, nebulizer treatments, Solu-Medrol, Mucinex. Patient had cultures performed which only indicated normal respiratory chrissy. This was discussed with the patient and notify her that her sputum could have been sterilized from the recent Levaquin and/or could be viral pneumonia. Patient tolerated and responded to treatment quite well. Was able to wean the patient off oxygen. She is doing much better. Objective findings with physical exam shows significant improvement. Patient had minimal air movement with wheeze on presentation, however she is with clear lung sounds at this time with improved air movement. Patient is much improved this time. She is eager to go home. Discussed outpatient follow-up and home medications. Patient does understand and agree with discharge planning. We will plan discharge accordingly. Pt Condition on Discharge: Stable Discharge Disposition: Discharge Home Discharge Time: > 30 minutes Discharge Instructions DIET: Follow Instructions for: Heart Healthy Diet Activities you can perform: Regular-No Restrictions Follow up Referrals: PCP Follow-up - 1 Week New Medications: Azithromycin (Zithromax) 250 Mg Tab 250 MG PO DAILY for Infection for 3 Days, #3 TAB 0 Refills Cefuroxime (Ceftin) 250 Mg Tab 250 MG PO BID for Infection for 7 Days, #14 TAB Ipratropium-Albuterol Inh (Combivent Respimat Inh) 20-100 Usp/Act Aero 1 PUFF INH QID for Asthma Management, #1 INHALER 0 Refills Methylprednisolone Dosepak (Medrol Dosepak) 4 Mg Dspk 4 MG PO DIRECTED, #1 DSPK 0 Refills Per Pharmacist direction Nebulizer (Nebulizer) 1 Mis Mis EA .XX DIRECTED for Breathing Treatment, #1 0 Refills [Albuterol-Ipratropium Neb] () 1 AMPULE NEBU 1 AMPULE NEB Q6HR WHILE AWAKE NEB for Wheeze, respiratory symptoms, #1 BOX [guaiFENesin ER] () 600 MG TABCR 600 MG PO BID for Respiratory symptoms for 7 Days Continued Medications: Aspirin DR (Aspirin EC) 81 Mg Tabdr 81 MG PO DAILY, TAB 0 Refills Folic Acid (Folic Acid) 0.8 Mg Tab 1 MCG PO DIRECTED for Nutritional Supplement, TAB 0 Refills Gabapentin (Gabapentin) 300 Mg Cap 600 MG PO HS, #30 CAP 0 Refills Glipizide (Glipizide) 5 Mg Tab 5 MG PO DAILY for Blood Sugar Management, #30 TAB 0 Refills Take 30 minutes before a meal Levothyroxine (Levothyroxine) 25 Mcg Tab 25 MCG PO DAILY for Thyroid, #30 TAB 0 Refills Methotrexate (Antirheumatic) (Rasuvo) 20 Mg/0.4 Ml Inj 50 MG IM WEEKLY Omeprazole (Omeprazole) 40 Mg Cap 40 MG PO DAILY, #30 CAP 0 Refills Prednisone (Prednisone) 5 Mg Tab 5 MG PO DAILY, TAB 0 Refills Sertraline (Sertraline) 50 Mg Tab 50 MG PO DAILY, #30 TAB 0 Refills Sitagliptin (Januvia) 100 Mg Tab 100 MG PO DAILY for Blood Sugar Management, #30 TAB 0 Refills Tofacitinib (Xeljanz) 5 Mg Tab 5 MG PO BID for Arthritis, #60 TAB 0 Refills Discontinued Medications: Levofloxacin (Levofloxacin) 750 Mg Tablet Unknown Dose PO DAILY for Infection, TAB 0 Refills Deni Lopez Feb 06, 2018 09:17
== END 2018-02-06 10:17 | disposition home or self-care (01) ==
LOC: PHED 12:18 → PHEDA 16:05 → INTOOBSV 16:05 → PH3A 17:17
PROVIDERS: ADMIT Hospitalist; ATTEND Hospitalist
DX: A41.9 Sepsis, unspecified organism (principal); J18.9 Pneumonia, unspecified organism; E11.9 Type 2 diabetes mellitus without complications; E03.9 Hypothyroidism, unspecified; I10 Essential (primary) hypertension; K21.9 Gastro-esophageal reflux disease without esophagitis; M06.9 Rheumatoid arthritis, unspecified; R94.31 Abnormal electrocardiogram [ECG] [EKG]; Z79.82 Long term (current) use of aspirin; Z87.891 Personal history of nicotine dependence
CPT/HCPCS: 71045; 80048; 80053; 81001; 82948; 83605; 83735; 83880; 85025; 87040; 87070; 87205; 87804; 93005; 94618; 94640; 94664; 94667; 94668; 96361; 96365; 96366; 96367; 96372; 96375; 96376; 99285; G0378; J0456; J0696; J1650; J1815; J2920; J2930; J7030; J7040; J7050; J7512; 96374